=== PATIENT | female | born 1975 | race Caucasian/White ===

== ENCOUNTER 2018-02-21 18:51 | Emergency (ER) | payer BC ==
[2018-02-21] MEDS ORDERED: Ketorolac 30 MG/ML SDV IVPUSH ONE (19:38)
[2018-02-21] MEDS ORDERED: Ondansetron 4 MG/2 ML SDV IVPUSH ONE (19:38)
[2018-02-21] MEDS ORDERED: Sodium Chloride 0.9% 1,000 ML IV ONE ×2 (19:38→21:29)
--- NOTE | 2018-02-21 19:39 | EDM.PDOC ---
ED HPI GENERAL MEDICAL PROBLEM - General Chief Complaint: Headache Stated Complaint: MIGRANE Time Seen by Provider: 02/21/18 19:38 Source of Information: Reports: Patient - History of Present Illness INITIAL COMMENTS - FREE TEXT/NARRATIVE: HISTORY AND PHYSICAL: History of present illness: [A shunt with history of migraine in the remote past presents with right unilateral headache nausea or light sensitivity and noise sensitivity consistent with her previous migraine, she is not had symptoms for over 10 years and has been dealing with headaches off and on over the last month on arrival headache is 8 out of 10 right unilateral radiating from back to front No fever chills sweats no chest pain shortness of breath dizziness or palpitation no bowel or urine symptoms] Review of systems: As per history of present illness and below otherwise all systems reviewed and negative. Past medical history: As per history of present illness and as reviewed below otherwise noncontributory. Surgical history: As per history of present illness and as reviewed below otherwise noncontributory. Social history: No reported history of drug or alcohol abuse. Family history: As per history of present illness and as reviewed below otherwise noncontributory. Physical exam: HEENT: Atraumatic, normocephalic, pupils reactive, negative for conjunctival pallor or scleral icterus, mucous membranes moist, throat clear, neck supple, nontender, trachea midline. Lungs: Clear to auscultation, breath sounds equal bilaterally, chest nontender. Heart: S1S2, regular, negative for clicks, rubs, or JVD. Abdomen: Soft, nondistended, nontender. Negative for masses or hepatosplenomegaly. Negative for costovertebral tenderness. Pelvis: Stable nontender. Genitourinary: Deferred. Rectal: Deferred. Extremities: Atraumatic, negative for cords or calf pain. Neurovascular unremarkable. Neuro: Awake, alert, oriented. Cranial nerves II through XII unremarkable. Cerebellum unremarkable. Motor and sensory unremarkable throughout. Exam nonfocal. Diagnostics: [CBC CMP UA hCG Head CT no contrast ] Therapeutics: [Toradol 30 mg IV Zofran 8 mg IV normal saline bolus Ativan 0.5 mg IV Benadryl 50 mg IV Maxalt 10 mg by mouth every 2 hours #3 no refill Impression: Migraine Definitive disposition and diagnosis as appropriate pending reevaluation and review of above. Headache Pain Score (Numeric/FACES): 8 - Related Data Allergies Allergy/AdvReac Type Severity Reaction Status Date / Time erythromycin base Allergy Intermediate Stomach Verified 02/21/18 19:38 [Erythromycin Base] Upset aspirin Allergy Stomach Verified 02/21/18 19:38 Upset Home Meds: Home Meds . [No Known Home Meds] 02/21/18 [History] ED ROS GENERAL - Review of Systems Review Of Systems: See Below ED EXAM, GENERAL - Physical Exam Exam: See Below Course - Vital Signs Last Recorded V/S: Last Vital Signs Temp 97.6 F 02/21/18 19:40 Pulse 78 02/21/18 21:52 Resp 18 02/21/18 21:52 BP 100/53 L 02/21/18 21:52 Pulse Ox 99 02/21/18 21:52 - Orders/Labs/Meds Labs: Laboratory Tests 02/21/18 02/21/18 02/21/18 Range/Units 19:45 19:45 20:30 WBC 8.42 (4.0-11.0) K/uL RBC 4.68 (4.30-5.90) M/uL Hgb 13.3 (12.0-16.0) g/dL Hct 38.9 (36.0-46.0) % MCV 83.1 (80.0-98.0) fL MCH 28.4 (27.0-32.0) pg MCHC 34.2 (31.0-37.0) g/dL RDW Std Deviation 37.7 (28.0-62.0) fl RDW Coeff of Maya 13 (11.0-15.0) % Plt Count 238 (150-400) K/uL MPV 9.40 (7.40-12.00) fL Neut % (Auto) 69.4 (48.0-80.0) % Lymph % (Auto) 24.0 (16.0-40.0) % Shelby % (Auto) 5.9 (0.0-15.0) % Eos % (Auto) 0.5 (0.0-7.0) % Baso % (Auto) 0.2 (0.0-1.5) % Neut # (Auto) 5.8 H (1.4-5.7) K/uL Lymph # (Auto) 2.0 (0.6-2.4) K/uL Shelby # (Auto) 0.5 (0.0-0.8) K/uL Eos # (Auto) 0.0 (0.0-0.7) K/uL Baso # (Auto) 0.0 (0.0-0.1) K/uL Nucleated RBC % 0.0 /100WBC Nucleated RBCs # 0 K/uL Sodium 139 (136-145) mmol/L Potassium 3.5 (3.5-5.1) mmol/L Chloride 105 (98-107) mmol/L Carbon Dioxide 25.4 (21.0-32.0) mmol/L BUN 10 (7.0-18.0) mg/dL Creatinine 1.0 (0.6-1.0) mg/dL Est Cr Clr Drug Dosing 70.54 mL/min Estimated GFR (MDRD) > 60.0 ml/min Glucose 105 (74-106) mg/dL Calcium 8.9 (8.5-10.1) mg/dL Total Bilirubin 0.5 (0.2-1.0) mg/dL AST 15 (15-37) IU/L ALT 23 (14-63) IU/L Alkaline Phosphatase 50 (46-116) U/L Total Protein 7.5 (6.4-8.2) g/dL Albumin 3.9 (3.4-5.0) g/dL Globulin 3.6 H (2.0-3.5) g/dL Albumin/Globulin Ratio 1.1 L (1.3-2.8) Urine Color YELLOW Urine Appearance SLT CLOUDY Urine pH 6.5 (5.0-8.0) Ur Specific Blair 1.010 (1.001-1.035) Urine Protein NEGATIVE (NEGATIVE) mg/dL Urine Glucose (UA) NEGATIVE (NEGATIVE) mg/dL Urine Ketones TRACE H (NEGATIVE) mg/dL Urine Occult Blood TRACE-INTACT (NEGATIVE) Urine Nitrite NEGATIVE (NEGATIVE) Urine Bilirubin NEGATIVE (NEGATIVE) Urine Urobilinogen 0.2 (<2.0) EU/dL Ur Leukocyte Esterase SMALL (NEGATIVE) Urine RBC 0-2 (0-2/HPF) Urine WBC 0-2 (0-5/HPF) Ur Epithelial Cells FEW (NONE-FEW) Urine Bacteria FEW (NEGATIVE) Urine HCG, Qual (NEGATIVE) 08/08/18 Range/Units 20:30 WBC (4.0-11.0) K/uL RBC (4.30-5.90) M/uL Hgb (12.0-16.0) g/dL Hct (36.0-46.0) % MCV (80.0-98.0) fL MCH (27.0-32.0) pg MCHC (31.0-37.0) g/dL RDW Std Deviation (28.0-62.0) fl RDW Coeff of Maya (11.0-15.0) % Plt Count (150-400) K/uL MPV (7.40-12.00) fL Neut % (Auto) (48.0-80.0) % Lymph % (Auto) (16.0-40.0) % Shelby % (Auto) (0.0-15.0) % Eos % (Auto) (0.0-7.0) % Baso % (Auto) (0.0-1.5) % Neut # (Auto) (1.4-5.7) K/uL Lymph # (Auto) (0.6-2.4) K/uL Shelby # (Auto) (0.0-0.8) K/uL Eos # (Auto) (0.0-0.7) K/uL Baso # (Auto) (0.0-0.1) K/uL Nucleated RBC % /100WBC Nucleated RBCs # K/uL Sodium (136-145) mmol/L Potassium (3.5-5.1) mmol/L Chloride (98-107) mmol/L Carbon Dioxide (21.0-32.0) mmol/L BUN (7.0-18.0) mg/dL Creatinine (0.6-1.0) mg/dL Est Cr Clr Drug Dosing mL/min Estimated GFR (MDRD) ml/min Glucose (74-106) mg/dL Calcium (8.5-10.1) mg/dL Total Bilirubin (0.2-1.0) mg/dL AST (15-37) IU/L ALT (14-63) IU/L Alkaline Phosphatase (46-116) U/L Total Protein (6.4-8.2) g/dL Albumin (3.4-5.0) g/dL Globulin (2.0-3.5) g/dL Albumin/Globulin Ratio (1.3-2.8) Urine Color Urine Appearance Urine pH (5.0-8.0) Ur Specific Blair (1.001-1.035) Urine Protein (NEGATIVE) mg/dL Urine Glucose (UA) (NEGATIVE) mg/dL Urine Ketones (NEGATIVE) mg/dL Urine Occult Blood (NEGATIVE) Urine Nitrite (NEGATIVE) Urine Bilirubin (NEGATIVE) Urine Urobilinogen (<2.0) EU/dL Ur Leukocyte Esterase (NEGATIVE) Urine RBC (0-2/HPF) Urine WBC (0-5/HPF) Ur Epithelial Cells (NONE-FEW) Urine Bacteria (NEGATIVE) Urine HCG, Qual NEGATIVE (NEGATIVE) Meds: Medications Discontinued Medications Generic Name Dose Route Start Last Admin Trade Name Freq PRN Reason Stop Dose Admin Diphenhydramine HCl 50 mg 02/21/18 20:35 02/21/18 21:13 Benadryl IVPUSH 02/21/18 20:36 50 mg ONETIME ONE Administration Sodium Chloride 1,000 mls @ 999 mls/hr 02/21/18 19:38 02/21/18 19:48 Normal Saline IV 02/21/18 20:38 999 mls/hr STAT ONE Administration Sodium Chloride 1,000 mls @ 999 mls/hr 02/21/18 21:29 02/21/18 21:32 Normal Saline IV 02/21/18 22:29 999 mls/hr .Bolus ONE Administration Ketorolac Tromethamine 30 mg 02/21/18 19:38 02/21/18 19:55 Toradol IVPUSH 02/21/18 19:39 30 mg ONETIME ONE Administration Lorazepam 0.5 mg 02/21/18 20:35 02/21/18 21:13 Ativan IVPUSH 02/21/18 20:36 0.5 mg ONETIME ONE Administration Ondansetron HCl 8 mg 02/21/18 19:38 02/21/18 19:51 Zofran IVPUSH 02/21/18 19:39 8 mg ONETIME ONE Administration Departure - Departure Time of Disposition: 10:43 Disposition: Home, Self-Care 01 Condition: Good Clinical Impression: Migraine - Discharge Information Instructions: Recurrent Migraine Headache, [id number] Referrals: PCP,None [Primary Care Provider] - Forms: ED Department Discharge Additional Instructions: The following information is given to patients seen in the emergency department who are being discharged to home. This information is to outline your options for follow-up care. We provide all patients seen in our emergency department with a follow-up referral. The need for follow-up, as well as the timing and circumstances, are variable depending upon the specifics of your emergency department visit. If you don't have a primary care physician on staff, we will provide you with a referral. We always advise you to contact your personal physician following an emergency department visit to inform them of the circumstance of the visit and for follow-up with them and/or the need for any referrals to a consulting specialist. The emergency department will also refer you to a specialist when appropriate. This referral assures that you have the opportunity for follow-up care with a specialist. All of these measure are taken in an effort to provide you with optimal care, which includes your follow-up. Under all circumstances we always encourage you to contact your private physician who remains a resource for coordinating your care. When calling for follow-up care, please make the office aware that this follow-up is from your recent emergency room visit. If for any reason you are refused follow-up, please contact the [facility] emergency department at and asked to speak to the emergency department charge nurse.
[2018-02-21 20:21] LABS: CHLORIDE,CL 105 mmol/L (98-107); SODIUM,NA 139 mmol/L (136-145)
[2018-02-21] MEDS ORDERED: diphenhydrAMINE 50 MG/ML SDV IVPUSH ONE (20:35)
[2018-02-21] MEDS ORDERED: LORazepam 2 MG/ML SDV IVPUSH ONE (20:35)
[2018-02-21 21:53] VITALS: BP 100/53
--- NOTE | 2018-02-22 10:00 | CT ---
EXAM DATE: 02/21/18 PATIENT'S AGE: 42 Patient: CORINA NEVAREZ Facility: [place], [place] Site . Site : 1975 Study: CT Head W/O Cont. [id number] 8:31:05 PM Ordering Physician: Dewey Hyatt Final Report: INDICATION: Migraine headache. TECHNIQUE: CT head without contrast. COMPARISON: None. FINDINGS: CSF spaces: Within normal limits for age. Brain parenchyma: The darby-white differentiation is normal. No sign of mass, hemorrhage, or midline shift. Skull base and calvarium: The visualized paranasal sinuses and mastoid air cells demonstrate no acute or significant findings. The visualized orbits are grossly unremarkable. No skull fractures. IMPRESSION: Unremarkable noncontrast head CT. Please note that all CT scans at this facility use dose modulation, iterative reconstruction, and/or weight-based dosing when appropriate to reduce radiation dose to as low as reasonably achievable. Dictated by Goran Trivedi MD @ Feb 21 2018 8:40PM (Electronic Signature) Report Signed by Proxy. [facility]ITALL[facility]et
== END 2018-02-21 22:10 | disposition home or self-care (01) ==
LOC: MW.ED 18:51
DX: G43.909 Migraine, unspecified, not intractable, without status migrainosus (principal); Z88.1 Allergy status to other antibiotic agents; Z88.8 Allergy status to other drugs, medicaments and biological substances
CPT/HCPCS: 36415; 70450; 80053; 81001; 81025; 85025; 96361; 96374; 96375; 99284; J1200; J1885; J2060; J2405; J7040

== ENCOUNTER 2020-12-14 16:56 | Emergency (ER) | payer BC ==
[2020-12-14 17:52] VITALS: BP 111/48; PULSE 73
--- NOTE | 2020-12-14 18:20 | EDM.PDOC ---
ED HPI GENERAL MEDICAL PROBLEM - General Chief Complaint: Lower Extremity Injury/Pain Stated Complaint: LFT TOE NAIL BARELY HANGING ON Time Seen by Provider: 12/14/20 18:06 - History of Present Illness INITIAL COMMENTS - FREE TEXT/NARRATIVE: 45-year-old female relative past medical history presents for left great toe avulsion injury. Patient was walking outside and hit her toe against a block of wood causing a near complete toenail avulsion. No other injuries. left great toe Pain Score (Numeric/FACES): 2 - Related Data Allergies Allergy/AdvReac Type Severity Reaction Status Date / Time erythromycin base Allergy Intermediate Stomach Verified 12/14/20 17:52 [Erythromycin Base] Upset aspirin Allergy Stomach Verified 12/14/20 17:52 Upset Home Meds: Home Meds Pregabalin [Lyrica] 105 mg PO BID 12/14/20 [History] Past Medical History HEENT History: Reports: None Cardiovascular History: Reports: None Respiratory History: Reports: None Gastrointestinal History: Reports: Other (See Below) Other Gastrointestinal History: ulcerative collits Genitourinary History: Reports: None 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: Musculoskeletal History: Reports: Fibromyalgia Neurological History: Reports: Headaches, Chronic Psychiatric History: Reports: None Endocrine/Metabolic History: Reports: None Hematologic History: Reports: Anesthesia Reaction Immunologic History: Reports: None Oncologic (Cancer) History: Reports: None Dermatologic History: Reports: None - Infectious Disease History Infectious Disease History: Reports: None - Past Surgical History Head Surgeries/Procedures: Reports: None HEENT Surgical History: Reports: None Cardiovascular Surgical History: Reports: None Respiratory Surgical History: Reports: None GI Surgical History: Reports: Hernia Repair/Other Female Surgical History: Reports: None Endocrine Surgical History: Reports: None Neurological Surgical History: Reports: None Musculoskeletal Surgical History: Reports: None Oncologic Surgical History: Reports: None Dermatological Surgical History: Reports: None Social & Family History - Family History Family Medical History: No Pertinent Family History - Tobacco Use Tobacco Use Status *Q: Never Tobacco User Second Hand Smoke Exposure: No - Caffeine Use Caffeine Use: Reports: None - Recreational Drug Use Recreational Drug Use: No Review of Systems - Review of Systems Review Of Systems: Comprehensive ROS is negative, except as noted in HPI. ED EXAM, GENERAL - Physical Exam Exam: See Below Exam Limited By: No Limitations General Appearance: Alert, WD/WN, No Apparent Distress Throat/Mouth: Normal Voice, No Airway Compromise Head: Atraumatic, Normocephalic Respiratory/Chest: No Respiratory Distress, No Accessory Muscle Use Cardiovascular: Normal Peripheral Pulses Extremities: Other (near complete L great toe nail avulsion) Psychiatric: Normal Affect, Normal Mood Skin Exam: Warm, Dry, Intact, Normal Color ED TRAUMA EXTREMITY PROCEDURES - Laceration/Wound Repair Left Toe - Great Lac/Wound Length In cm: 0 (L great toe nailbed avulsion, small 0.5cm superficial laceration to distal toe) Distal NVT: Neuro & Vascular Intact Anesthetic Type: Digital Local Anesthesia - Lidocaine (Xylocaine): 1% Plain Local Anesthetic Volume: Other (10) Skin Prep: Isopropyl Alcohol (Alcohol) Saline Irrigation (cc's): 50 Closed With: Sutures Suture Size: 4-0 # of Sutures: 2 Suture Type: Nylon Tetanus Status Addressed: Yes Complications: No Progress/Comments: The nail was almost complete avulsed. The nail was lifted and cleaned. The underlying nailbed did not have any lacerations and was cleaned. The nail was replaced into the matrix and was sutured down into place. Course - Vital Signs Last Recorded V/S: Last Vital Signs Temp 97.8 F 12/14/20 17:51 Pulse 73 12/14/20 17:51 Resp 18 12/14/20 17:51 BP 111/48 L 12/14/20 17:51 Pulse Ox 100 12/14/20 17:51 - Orders/Labs/Meds Meds: Medications Discontinued Medications Generic Name Dose Route Start Last Admin Trade Name Ortizq PRN Reason Stop Dose Admin Lidocaine HCl 10 ml 12/14/20 18:08 12/14/20 18:40 Lidocaine 1% 5 Ml Sdv INJECT 12/14/20 18:09 10 ml ONETIME ONE Administration - Re-Assessments/Exams Free Text/Narrative Re-Assessment/Exam: 12/14/20 18:59 The nail was sutured back into place. Patient is to follow-up with primary care physician in 1 week for wound reassessment. Return precautions discussed. Departure - Departure Time of Disposition: 18:59 Disposition: Home, Self-Care 01 Condition: Good Clinical Impression: Nailbed avulsion - Discharge Information Instructions: Nail Avulsion Referrals: Ailin Dos Santos PA-C [Primary Care Provider] - Forms: ED Department Discharge Additional Instructions: Please follow-up with your primary care physician or return to the ER for reassessment 1 week. The following information is given to patients seen in the emergency department who are being discharged to home. This information is to outline your options for follow-up care. We provide all patients seen in our emergency department with a follow-up referral. The need for follow-up, as well as the timing and circumstances, are variable depending upon the specifics of your emergency department visit. If you don't have a primary care physician on staff, we will provide you with a referral. We always advise you to contact your personal physician following an emergency department visit to inform them of the circumstance of the visit and for follow-up with them and/or the need for any referrals to a consulting specialist. The emergency department will also refer you to a specialist when appropriate. This referral assures that you have the opportunity for follow-up care with a specialist. All of these measure are taken in an effort to provide you with optimal care, which includes your follow-up. Under all circumstances we always encourage you to contact your private physician who remains a resource for coordinating your care. When calling for follow-up care, please make the office aware that this follow-up is from your recent emergency room visit. If for any reason you are refused follow-up, please contact the [facility] Emergency Department at and asked to speak to the emergency department charge nurse. Please follow up with your primary care physician. If you do not have a primary care physician, see below: [facility] [address] [place] [id number] [facility] [address] [place] [address] [facility] [address] [place] [id number] Sepsis Event Note (ED) - Evaluation Sepsis Screening Result: No Definite Risk - Focused Exam Vital Signs: Vital Signs Temp Pulse Resp BP Pulse Ox 12/14/20 17:51 97.8 F 73 18 111/48 L 100
== END 2020-12-14 19:15 | disposition home or self-care (01) ==
LOC: MW.ED 16:56
DX: S91.202A Unspecified open wound of left great toe with damage to nail, initial encounter (principal); S91.212A Laceration without foreign body of left great toe with damage to nail, initial encounter; Z88.1 Allergy status to other antibiotic agents; Z88.8 Allergy status to other drugs, medicaments and biological substances; W22.8XXA Striking against or struck by other objects, initial encounter
CPT/HCPCS: 12001; 99282-25